=== PATIENT | female | born 1970 | race Hispanic/Latino ===

== ENCOUNTER 2018-09-26 09:42 | Emergency (ER) | payer BC ==
[2018-09-26 10:06] LABS: #Basophils 0.1 thou/uL (0.0-0.2); #Eosinphils 0.1 thou/uL (0.0-0.7); #Lymphocytes 2.4 thou/uL (1.20-3.40); #Monocytes 0.4 thou/uL (0.11-0.59); %Eosinophils 1.7 % (0.0-10.0); %Lymphocytes 29.9 % (21.0-51.0); %Monocytes 4.3 % (0.0-10.0); %Neutrophils 63.1 % (42.0-75.0); Mean Corpuscular HGB CONC 34.6 g/dL (32.0-36.0); Mean Corpuscular Hemoglobin 31.6 pg (27.0-31.0); Mean Corpuscular Volume 91.5 fL (78.0-98.0); Mean Platelet Volume 7.5 fL (7.4-10.4); Platelet Count 252 thou/uL (130-400); RBC Distribution Width 12.1 % (11.5-14.5); Red Blood Cell (RBC) Count 5.39 mill/uL (4.20-5.40)
[2018-09-26] MEDS ORDERED: hydrALAZINE 20 MG/ML VIAL ONE (10:15)
[2018-09-26 10:28] LABS: ALT (SGPT) 17 U/L (8-55); AST (SGOT) 18 U/L (5-34); Alkaline Phosphatase 109 U/L (40-150); Anion Gap 14 mmol/L (10-20); BUN (Urea Nitrogen) 10 mg/dL (7.0-18.7); Bilirubin, Total 0.6 mg/dL (0.2-1.2); CK (CPK) 61 U/L (29-168); Calc. Creatinine Clearance 0 mL/min (70-130); Calcium 9.7 mg/dL (7.8-10.44); Carbon Dioxide 28 mmol/L (22-29); Chloride 101 mmol/L (98-107); Estimated GFR-MDRD 84; Globulin 3.9 g/dL (2.4-3.5); Glucose 135 mg/dL (70-105); Potassium 3.5 mmol/L (3.5-5.1); Protein, Total 8.9 g/dL (6.0-8.3); Sodium 139 mmol/L (136-145)
[2018-09-26 10:33] LABS: Troponin I Less than 0.010 ng/mL (< 0.028)
--- NOTE | 2018-09-26 10:37 | RAD ---
ONE VIEW CHEST: History: Hypertension, dizziness. Comparison: None. FINDINGS: Normal cardiac silhouette. The pulmonary vessels and hilum are normal. No masses or consolidation. No pneumothorax or osseous abnormalities. IMPRESSION: No acute cardiopulmonary process. POS: [facility]
[2018-09-26] MEDS ORDERED: Meclizine HCl 25 MG TAB ONE (11:31)
[2018-09-26] MEDS ORDERED: Metoclopramide HCl 10 MG/2 ML VIAL ONE (11:31)
--- NOTE | 2018-09-30 17:04 | EKG ---
Test Reason : Blood Pressure : / mmHG Vent. Rate : 096 BPM Atrial Rate : 096 BPM P-R Int : 116 ms QRS Dur : 078 ms QT Int : 362 ms P-R-T Axes : 017 -01 035 degrees QTc Int : 457 ms Normal sinus rhythm Normal ECG Confirmed by TAJ PECK ([id number]), clinical editor REID FRIEDMAN ([id number]) on 09/30/2018 5:04:18 PM Referred By: Confirmed By:TAJ PECK
== END 2018-09-26 12:47 | disposition home or self-care (01) ==
LOC: ERS 09:42
DX: I10 Essential (primary) hypertension (principal); R42 Dizziness and giddiness; E11.9 Type 2 diabetes mellitus without complications; Z79.899 Other long term (current) drug therapy; Z79.84 Long term (current) use of oral hypoglycemic drugs
CPT/HCPCS: 71045; 80053; 82550; 82553; 83880; 84443; 84484; 85025; 93005; 96365; 96375; J0360; J2765

== ENCOUNTER 2020-01-24 13:06 | Outpatient (CLI) | payer BC ==
--- NOTE | 2020-01-24 14:13 | MMO ---
Bilateral MAMMO Bilat Screen [facility]. CLINICAL HISTORY: Patient is 49 years old and is seen for screening. The patient has no family history of breast cancer. The patient has no personal history of cancer. VIEWS: The views performed were: bilateral craniocaudal with tomosynthesis and bilateral mediolateral oblique with tomosynthesis. FILMS COMPARED: The present examination has been compared to prior imaging studies performed at [facility] on 07/10/2013, 07/17/2014, 08/09/2015 and 09/03/2016. This study has been interpreted with the assistance of computer-aided detection. MAMMOGRAM FINDINGS: There are scattered fibroglandular densities. There are no suspicious masses, suspicious calcifications, or new areas of architectural distortion. IMPRESSION: THERE IS NO MAMMOGRAPHIC EVIDENCE OF MALIGNANCY. A ROUTINE FOLLOW-UP MAMMOGRAM IN 1 YEAR IS RECOMMENDED. THE RESULTS OF THIS EXAM WERE SENT TO THE PATIENT. ACR BI-RADS Category 1 - Negative MAMMOGRAPHY NOTE: 1. A negative mammogram report should not delay a biopsy if a dominant of clinically suspicious mass is present. 2. Approximately 10% to 15% of breast cancers are not detected by mammography. 3. Adenosis and dense breasts may obscure an underlying neoplasm. Reported by: TIM JUNE MD Electonically Signed: [id number]
== END 2020-01-24 13:07 | disposition home or self-care (01) ==
LOC: BICMAMMO 13:06
PROVIDERS: ATTEND Family Medicine
DX: Z12.31 Encounter for screening mammogram for malignant neoplasm of breast (principal)
CPT/HCPCS: 77063; 77067

== ENCOUNTER 2020-05-02 07:06 | Observation (INO) | payer BC ==
[2020-05-02] MEDS ORDERED: Sodium Chloride 0.9% 1,000 ML IV SCH (07:30)
[2020-05-02] MEDS ORDERED: Ondansetron PF 4 MG/2 ML Vial IVP SCH (07:33)
[2020-05-02] MEDS ORDERED: Ondansetron PF 4 MG/2 ML Vial ONE ×2 (07:41→15:40)
[2020-05-02] MEDS ORDERED: Morphine 4 MG/ML VIAL ONE (07:41)
[2020-05-02] MEDS ORDERED: Morphine 4 MG/ML VIAL SLOW IVP SCH (07:53)
[2020-05-02 08:06] LABS: #Basophils 0.1 thou/uL (0.0-0.2); #Eosinphils 0.2 thou/uL (0.0-0.7); #Lymphocytes 1.2 thou/uL (1.20-3.40); #Monocytes 0.8 thou/uL (0.11-0.59); #Neutrophils 8.4 thou/uL (1.40-6.50); %Basophils 0.5 % (0.0-1.0); %Eosinophils 1.5 % (0.0-10.0); %Lymphocytes 11.3 % (21.0-51.0); %Monocytes 7.3 % (0.0-10.0); %Neutrophils 79.4 % (42.0-75.0); Mean Corpuscular HGB CONC 33.9 g/dL (32.0-36.0); Mean Corpuscular Hemoglobin 31.8 pg (27.0-31.0); Mean Corpuscular Volume 93.7 fL (78.0-98.0); Mean Platelet Volume 8.2 fL (7.4-10.4); Platelet Count 245 thou/uL (130-400); RBC Distribution Width 11.8 % (11.5-14.5); Red Blood Cell (RBC) Count 4.09 mill/uL (4.20-5.40); White Blood Cell (WBC) Count 10.6 thou/uL (4.8-10.8)
[2020-05-02 08:13] LABS: BHCG - Serum Negative (NEGATIVE); Pregs Control Background? CLEAR/WHITE (CLR/WHITE); Pregs Control Bar Appear? YES (CONTROL BAR)
--- NOTE | 2020-05-02 08:19 | CT ---
CT ABDOMEN AND PELVIS WITH CONTRAST: Date: 05/02/2020 HISTORY: Abdominal pain and nausea. COMPARISON: None. FINDINGS: There are some mild atelectatic changes in the lung bases. No pericardial effusion. There is marked d istention of the gallbladder with numerous gallstones in the gallbladder neck and body. There is blake cholecystic inflammation. The common bile duct is not dilated. No intrahepatic biliary dilatation. The spleen and pancreas are unremarkable, as well as the adrenal glands. No hydronephrosis. There is mass effect with abutment of the enlarged gallbladder upon the anterior cortex of the right kidney du e to mass effect. The aortic contour is nonaneurysmal. No free intraperitoneal air. Small, fat-containing umbilical hernia. No dilated loops of large or small bowel. Appendix is visuali zed and is normal. IMPRESSION: Findings of acute cholecystitis. Ultrasound confirmation is unnecessary. CODE T. POS: [facility]
[2020-05-02 08:21] LABS: ALT (SGPT) 10 U/L (8-55); AST (SGOT) 13 U/L (5-34); Albumin 3.6 g/dL (3.5-5.0); Alkaline Phosphatase 90 U/L (40-110); Anion Gap 12 mmol/L (10-20); BUN (Urea Nitrogen) 12 mg/dL (7.0-18.7); Bilirubin, Total 0.8 mg/dL (0.2-1.2); CK (CPK) 40 U/L (29-168); Calc. Creatinine Clearance 0 mL/min (70-130); Calcium 8.5 mg/dL (7.8-10.44); Carbon Dioxide 32 mmol/L (22-29); Chloride 97 mmol/L (98-107); Estimated GFR-MDRD 88; Globulin 3.2 g/dL (2.4-3.5); Glucose 195 mg/dL (70-105); Lipase 26 U/L (8-78); Protein, Total 6.8 g/dL (6.0-8.3); Sodium 138 mmol/L (136-145)
[2020-05-02 08:29] LABS: Potassium 2.9 mmol/L (3.5-5.1)
[2020-05-02] MEDS ORDERED: Piperacillin/Tazobactam 4.5 GM VIAL ONE (08:29)
[2020-05-02] MEDS ORDERED: Piperacillin/Tazobactam 4.5 GM in Sodium Chloride 0.9% 100 ML IVPB SCH (08:37)
[2020-05-02 08:49] LABS: INR-International Normal Ratio 1.1; PTT 36.8 sec (22.9-36.1); Prothrombin Time 14.3 sec (12.0-14.7)
--- NOTE | 2020-05-02 08:49 | RAD ---
PORTABLE CHEST: DATE: 05/02/2020. PROVIDED CLINICAL HISTORY: Abdominal pain with nausea and vomiting. FINDINGS: Comparison 09/26/2018. Cardiac and mediastinal silhouette is unchanged in appearance. No focal cons olidation, pleural fluid, or pneumothorax apparent. IMPRESSION: No evidence for an acute cardiopulmonary process. POS: [facility]
[2020-05-02 08:54] LABS: Phosphorus 3.1 mg/dL (2.3-4.7)
[2020-05-02 08:57] LABS: Bacteria/HPF None Seen HPF (None Seen); Bilirubin Negative (Negative); Blood, Urine Negative (Negative); Clarity Clear (Clear); Glucose, Urine (Dipstick) Normal (Negative); Leukocyte 500 Leu/uL (Negative); Nitrite Negative (Negative); Protein, Urine (Dipstick) 20 mg/dL (Neg-Trace); Squamous Epithelial 0-3 HPF (0-3); Urobilinogen Normal mg/dL (Less than 2)
[2020-05-02] MEDS ORDERED: Potassium Chloride 40 MEQ in Sodium Chloride 0.9% 250 ML 250 ML IVPB SCH (09:00)
--- NOTE | 2020-05-02 10:57 | ULT ---
GALLBLADDER ULTRASOUND: Date: 05/02/2020 HISTORY: Right upper quadrant pain. Gallstones. FINDINGS: Slight coarse increased liver echogenicity with some hepatomegaly. Very markedly distended and dilate d gallbladder with extensive sludge and numerous large gallstones within the neck of the gallbladder, as well as the fundus of the gallbladder, with some borderline gallbladder wall thickening. Patient does exhibit a positive Brannon's sign. Visualized pancreas and right kidney are unremarkable. Common bile duct is 0.2 cm. IMPRESSION: Very markedly distended dilated gallbladder with extensive sludge and multiple stones with some minim al gallbladder wall thickening and evidence for a positive Brannon's sign. Evidence for acute cholecys titis. POS: [facility]
[2020-05-02] MEDS ORDERED: Iopamidol-370 76% 500 ML 1 ML ONE (12:51)
--- NOTE | 2020-05-02 13:19 | HP ---
HISTORY OF PRESENT ILLNESS: Ms. Hdz is a 50-year-old woman, Mongolian-speaking only. The patient presented to emergency department today accompanied by her adult daughter, who provided interpretation. The patient reports insidious onset epigastric right upper quadrant abdominal pain, which started three days ago after breakfast. Pain was initially 6/10, intensified to 10/10 yesterday, associated with multiple episodes of nausea, one bout of emesis and abdominal bloating. She reports transient episodes of right upper quadrant postprandial abdominal pain over the last three months, but not as severe as what has brought her to the emergency department today. She denies any fevers or chills. PAST MEDICAL HISTORY: Pertinent for essential hypertension and diabetes mellitus. PAST SURGICAL HISTORY: Pertinent for through an infraumbilical midline incision. SOCIAL HISTORY: She is G3, P3. She denies any cigarette smoking, ethanol, or illicit drug abuse. FAMILY HISTORY: Noncontributory for this patient's age. PREHOSPITALIZATION MEDICATIONS: Include, 1. Quinapril 40 mg p.o. daily. 2. Metoprolol 100 mg p.o. daily. 3. Glyburide 2.5 mg p.o. daily. ALLERGIES: THE PATIENT DENIES ANY KNOWN DRUG ALLERGIES. REVIEW OF SYSTEMS: Ten-point review of systems essentially unremarkable, except as stated in past medical history and chief complaint. PHYSICAL EXAMINATION: GENERAL: This reveals a 50-year-old, normally developed woman, who is otherwise coherent and interactive and appears stated age. The patient is alert and oriented x3. She appears to be in moderate acute distress secondary to right upper quadrant abdominal pain. VITAL SIGNS: Include blood pressure 173/109, pulse 130, respiratory rate is 21, temperature 98.3 degrees Fahrenheit, oxygen saturation 100% on room air. Pain rated at 10/10 at this time. Had resolved to 5/10 after intravenous analgesics, at which time her blood pressure was noted at 159/101 with a pulse of 120. HEENT: Reveals normocephalic and atraumatic. Pupils are equal, round, reactive to light and accommodation. She has no scleral icterus present. HEART: Reveals regular rate with sinus tachycardia. No murmurs or gallops auscultated. LUNGS: Clear to auscultation bilaterally. Her breathing is regular and nonlabored. ABDOMEN: Soft with right upper quadrant tenderness to palpation. She has a positive Brannon sign. Liver and spleen otherwise nonpalpable below costal margin. NEUROLOGIC: Reveals no focal deficits present. LABORATORY FINDINGS: Today include a CBC with 10,600 white blood cells, hemoglobin and hematocrit 13.0 and 38.3 respectively. The platelet count is 245,000. Metabolic profile; sodium 138, potassium is 2.9, chloride is 97, bicarb is 32, BUN 12, creatinine 0.71, glucose 195, magnesium 2.0, phosphorus 3.1. AST and ALT, normal at 13 and 10 respectively. Total bilirubin 0.8. Alkaline phosphatase is 90. Serum test is negative. I have reviewed the radiographic studies including a CT scan of the abdomen and pelvis, which is remarkable for distended gallbladder with pericholecystic inflammation and two large intraluminal calcified gallstones. I have also reviewed the abdominal ultrasound, which is remarkable for markedly distended gallbladder with multiple intraluminal gallstones, gallbladder wall thickening, and pericholecystic fluid present. Common bile duct size is normal in diameter for this patient's age at 2 mm. IMPRESSION: Acute cholecystitis with cholelithiasis. PLAN: Laparoscopic cholecystectomy. Above findings and plan has been discussed with the patient through her daughter, who provided interpretation. I have advised the patient of the risks and benefits of the proposed surgery to include, but not limited to bleeding, infection, injury to bile duct or surrounding structures. The patient indicates understanding of information given. I have answered her questions. The patient is going to consent for this admission and surgical intervention. Job ID: [id number]
[2020-05-02] MEDS ORDERED: Insulin Regular 300 UNITS/3 ML VIAL SC PRN ×2 (13:25)
[2020-05-02] MEDS ORDERED: Dextrose 5% in Water 1,000 ML IV PRN (13:25)
[2020-05-02] MEDS ORDERED: hydrALAZINE 20 MG/ML VIAL SLOW IVP PRN (13:25)
[2020-05-02] MEDS ORDERED: Dextrose 50% Abboject 50 ML SYRINGE SLOW IVP PRN (13:25)
[2020-05-02] MEDS ORDERED: Ondansetron PF 4 MG/2 ML Vial IVP PRN (13:25)
[2020-05-02] MEDS ORDERED: Morphine 2 MG/ML SYRINGE SLOW IVP PRN (13:25)
[2020-05-02] MEDS: Morphine 4 MG/ML VIAL SLOW IVP PRN ×2 (13:58→20:35)
[2020-05-02] MEDS: Sodium Chloride 0.9% 1,000 ML IV SCH (13:58)
[2020-05-02] MEDS ORDERED: Rocuronium Bromide 10 MG/ML (10ML VIAL) ONE (15:40)
[2020-05-02] MEDS ORDERED: PROPOFOL 200 MG/20 ML VIAL ONE (15:40)
[2020-05-02] MEDS ORDERED: Glycopyrrolate 0.2 MG/ML 5 ML SYRINGE ONE (15:40)
[2020-05-02] MEDS ORDERED: Ketorolac Tromethamine 30 MG/ML VIAL ONE (15:40)
[2020-05-02] MEDS ORDERED: Labetalol HCl 100 MG/20 ML VIAL ONE (15:40)
[2020-05-02 17:43] VITALS: BMI 24.9
[2020-05-02] MEDS ORDERED: Acetaminophen 500 MG TAB PO SCH (19:15)
[2020-05-02] MEDS: Famotidine/PF 20 mg/2ml Vial SLOW IVP SCH (20:35)
[2020-05-02] MEDS ORDERED: Fentanyl 100 MCG/2 ML VIAL ONE ×2 (22:59→23:33)
[2020-05-02] MEDS ORDERED: Bupivacaine 0.25% HCL 30 ML VIAL ONE (23:01)
[2020-05-02] MEDS ORDERED: Lidocaine 1% w/Epinephrine 1:100K 20 ML VIAL ONE (23:01)
[2020-05-03] MEDS ORDERED: traMADol HCl 50 MG TAB PO PRN ×2 (01:23)
[2020-05-03] MEDS ORDERED: Ketorolac Tromethamine 30 MG/ML VIAL IVP PRN (01:23)
[2020-05-03] MEDS ORDERED: Ondansetron HCl/PF 4 MG/2 ML Vial IVP PRN (01:24)
[2020-05-03] MEDS ORDERED: Promethazine HCl 25 MG/ML VIAL SLOW IVP PRN (01:24)
[2020-05-03] MEDS ORDERED: Promethazine HCl 25 MG/ML VIAL IM PRN (01:24)
[2020-05-03] MEDS: Acetaminophen 500 MG TAB PO SCH ×3 (01:47→12:34)
--- NOTE | 2020-05-03 03:21 | OP ---
DATE OF PROCEDURE: 05/02/2020 PREOPERATIVE DIAGNOSES: Acute cholecystitis and cholelithiasis. POSTOPERATIVE DIAGNOSES: Acute cholecystitis and cholelithiasis. PROCEDURE PERFORMED: Laparoscopic cholecystectomy. ANESTHESIA: General endotracheal. ESTIMATED BLOOD LOSS: 100 mL. FLUIDS GIVEN: 1500 mL of crystalloids. COUNTS: Sponge and instrument counts were verified as correct x2. COMPLICATIONS: None apparent at the time of operation. INDICATIONS FOR OPERATION: A 50-year-old woman, presented with recurrent epigastric right upper quadrant abdominal pain. Clinical and radiographic examination were consistent with acute cholecystitis with cholelithiasis, for which the patient was brought to the operating room for cholecystectomy. Findings are consistent with markedly distended gallbladder in the usual anatomic location with multiple intraluminal gallstones and the gallbladder itself was completely encased by omental adhesions. DESCRIPTION OF PROCEDURE: Informed consent was obtained from the patient, who was brought to the operating room and placed in supine position. Following general anesthesia, abdomen was sterilely prepped and draped in usual fashion. The skin below the umbilicus was infiltrated with 0.25% Marcaine with epinephrine. A small curvilinear infraumbilical incision was made using 11 scalpel. Umbilical stalk was grasped with Gentry and elevated. Veress needle was inserted through the incision and placed in the peritoneal cavity, through which the abdomen was insufflated with 3 L of CO2 gas. Intraabdominal pressure was noted at 1 mmHg. Following abdominal insufflation, Veress needle was removed and a 5 mm trocar introduced using a Visiport under laparoscopy. Laparoscopy confirmed proper placement of the port, no injuries to underlying structures. Additional laparoscopy revealed the right upper quadrant completely encased by omental adhesions. Under direct laparoscopy, a 12 mm epigastric and two 5 mm right lateral subcostal ports were placed after the overlying skin was infiltrated with 0.25% Marcaine with epinephrine, and appropriate incision was made. The patient was placed in a reverse Trendelenburg position, rotated to her left. I introduced a [place] dissector with cautery through the epigastric port using this to take down omental adhesions to reveal the fundus of the gallbladder, which was purplish appearing. I tend to grasp the gallbladder with a Prestige grasper introduced through the right lateral subcostal port. The gallbladder was markedly distended and taut. I decided to decompress the gallbladder. To achieve this, I used an Endo suction catheter with cautery to create an opening at the fundus of the gallbladder using cautery. Excess black purulent bile was evacuated. Prestige grasper was then applied at the fundus, which was elevated cephalad. Omental adhesions were bluntly taken down from remainder of the gallbladder. It was quite inflamed and hyperemic oozing of blood. We bluntly dissected down to expose the neck of the gallbladder, which contained two large stones. I was able to manipulate the large stones into the gallbladder lumen and applied a Prestige grasper to the Melly pouch, which was then retracted laterally. Peritoneum of the gallbladder was opened at the gallbladder neck using a [place] dissector. The cystic duct and cystic artery were then dissected free from surrounding structures. Critical view was obtained. The cystic artery was then divided between clips high at the level of the gallbladder neck. This was divided between clips applying 2 clips proximally and 1 clip at the junction of the cystic artery and gallbladder. The cystic duct was also divided between clips in a similar fashion. The gallbladder itself was tediously, but meticulously taken off the liver with cautery and delivered of the abdominal cavity using the EndoCatch. We required extension of the epigastric port site in order to deliver the distended gallbladder with multiple large calcified stones even after the stones were crushed. Once the gallbladder was delivered, the trocar was reinserted and abdomen was re-insufflated. The gallbladder fossa was oozy of blood. No pulsatile bleed noted. Clips remained in place, no bile stains present. The gallbladder fossa was irrigated clear with saline solution. I applied Rc to the gallbladder fossa to achieve hemostasis. A #19 Gurdeep drain was introduced into the subhepatic space and allowed to exit the abdominal cavity through the right lateral subcostal port. The drain was secured to anterior abdominal wall using 2-0 silk suture. The fascia of the epigastric port was closed using 0 Vicryl suture and Endoclosure device. It was also reinforced using 0 Vicryl suture with a UR5 under direct vision. The abdomen was desufflated. All ports and instruments were removed and accounted for. Skin incision was closed using 4-0 Monocryl suture in subcuticular fashion. Dermabond was applied over incisional closure. The patient tolerated the operation without any apparent complication and was returned to recovery room in satisfactory condition. Job ID: [id number]
[2020-05-03 05:49] LABS: #Lymphocytes 0.8 thou/uL (1.20-3.40); #Monocytes 0.5 thou/uL (0.11-0.59); #Neutrophils 9.4 thou/uL (1.40-6.50); %Basophils 0.3 % (0.0-1.0); %Eosinophils 0.3 % (0.0-10.0); %Lymphocytes 7.4 % (21.0-51.0); %Monocytes 4.4 % (0.0-10.0); %Neutrophils 87.6 % (42.0-75.0); Hemoglobin 12.5 g/dL (12.0-16.0); Mean Corpuscular HGB CONC 34.4 g/dL (32.0-36.0); Mean Corpuscular Hemoglobin 32.8 pg (27.0-31.0); Mean Corpuscular Volume 95.5 fL (78.0-98.0); Mean Platelet Volume 7.6 fL (7.4-10.4); Platelet Count 297 thou/uL (130-400); White Blood Cell (WBC) Count 10.8 thou/uL (4.8-10.8)
[2020-05-03] MEDS: Sodium Chloride 0.9% 1,000 ML IV SCH (05:59)
[2020-05-03 06:41] LABS: ALT (SGPT) 89 U/L (8-55); AST (SGOT) 130 U/L (5-34); Albumin 3.4 g/dL (3.5-5.0); Alkaline Phosphatase 216 U/L (40-110); Anion Gap 14 mmol/L (10-20); BUN (Urea Nitrogen) 8 mg/dL (7.0-18.7); Bilirubin, Total 0.5 mg/dL (0.2-1.2); Calc. Creatinine Clearance 103 mL/min (70-130); Calcium 8.1 mg/dL (7.8-10.44); Carbon Dioxide 27 mmol/L (22-29); Chloride 102 mmol/L (98-107); Estimated GFR-MDRD 86; Globulin 3.6 g/dL (2.4-3.5); Glucose 217 mg/dL (70-105); Magnesium 1.8 mg/dL (1.6-2.6); Phosphorus 2.7 mg/dL (2.3-4.7); Potassium 4.3 mmol/L (3.5-5.1); Sodium 139 mmol/L (136-145)
[2020-05-03] MEDS ORDERED: Magnesium 2 GM/50 ML 2 GM in Premix Bag 1 BAG IVPB SCH (08:00)
[2020-05-03] MEDS ORDERED: Sodium Phosphate 15 MMOL in Sodium Chloride 0.9% 250 ML 250 ML IVPB SCH (08:00)
[2020-05-03] MEDS: Famotidine/PF 20 mg/2ml Vial SLOW IVP SCH (08:08)
[2020-05-03] MEDS ORDERED: Hydrochlorothiazide 25 MG TAB PO SCH (09:00)
[2020-05-03] MEDS ORDERED: Lisinopril 20 MG TAB PO SCH (09:00)
[2020-05-03 11:58] VITALS: BP 150/92; TEMP 98.5
--- NOTE | 2020-05-03 15:19 | EKG ---
Test Reason : Blood Pressure : / mmHG Vent. Rate : 093 BPM Atrial Rate : 093 BPM P-R Int : 144 ms QRS Dur : 078 ms QT Int : 412 ms P-R-T Axes : 016 000 014 degrees QTc Int : 512 ms Normal sinus rhythm Inferior infarct , age undetermined Prolonged QT Abnormal ECG Confirmed by DIA TRIPATHI, ALISSA ([id number]), supervising editor news reel MATIAS BLUE ([id number]) on 05/03/2020 3:18:52 PM Referred By: Confirmed By:ALISSA ALVARES MD
--- NOTE | 2020-05-03 17:28 | DIS ---
DATE OF ADMISSION: 05/02/2020 DATE OF DISCHARGE: 05/03/2020 ADMISSION DIAGNOSES: Acute cholecystis and cholelithiasis. DISCHARGE DIAGNOSES: Acute cholecystis and cholelithiasis. CONSULTING PHYSICIAN: None. PROCEDURES: The patient went to the OR on May 02, 2020 and had a laparoscopic cholecystectomy by Dr. Mack. HOSPITAL COURSE: The patient is a 50-year-old female, who presented with abdominal pain, was found to have acute cholecystitis and cholelithiasis. She went to the OR the next day and had a laparoscopic cholecystectomy. Postoperatively, she tolerated a regular diet, voided without difficulties, was passing gas, and was hemodynamically stable when she was discharged home. DISCHARGE DISPOSITION: Home. DISCHARGE CONDITION: Satisfactory. PHYSICAL EXAMINATION: VITAL SIGNS: Temperature 98.7, pulse rate 99, respirations are 12, oxygen saturation 97% on room air, and blood pressure 150/92. GENERAL: A well-appearing middle-aged female, lying in bed with no signs of acute distress. PULMONARY: Equal chest rise and fall. No signs of acute respiratory distress. CARDIAC: Regular rate and rhythm. GASTROINTESTINAL: Soft, mildly tender to palpation and nondistended. EXTREMITIES: 2+ pulses in all extremities. Gross motor and sensation intact. No significant swelling noted. NEUROLOGIC: GCS 15. DISCHARGE INSTRUCTIONS: The patient was discharged home, activity as tolerated, diabetic diet. DISCHARGE MEDICATIONS: Tylenol, glipizide, hydrochlorothiazide, metoprolol, quinapril, and tramadol. FOLLOWUP APPOINTMENTS: The patient is to follow up with Dr. Mack in clinic on May 16, 2020, at 10:30 a.m. She is to complete LFTs before her appointment. This is a summary of the patient's hospitalization. For full details, please see her medical record in its entirety. Dr. Mack evaluated the patient on the day of discharge with myself during rounds. Job ID: [id number]
== END 2020-05-03 14:03 | disposition home or self-care (01) ==
LOC: ERS 07:06 → ERHOLD 08:57 → SJJU 11:55
PROVIDERS: ADMIT Surgery; ATTEND Surgery
PROC: 0FT44ZZ Resection of Gallbladder, Percutaneous Endoscopic Approach (ICD-10-PCS; principal; 2020-05-03)
DX: K80.12 Calculus of gallbladder with acute and chronic cholecystitis without obstruction (principal); I10 Essential (primary) hypertension; E11.9 Type 2 diabetes mellitus without complications; Z79.84 Long term (current) use of oral hypoglycemic drugs; Z79.899 Other long term (current) drug therapy
CPT/HCPCS: 36415; 36416; 71045; 74177; 76705; 80053; 81003; 81015; 82550; 83690; 83735; 84100; 84703; 85025; 85610; 85730; 86850; 86900; 86901; 87086; 88304; 93005; 96361; 96365; 96366; 96367; 96375; 96376; G0378; J0360; J1815; J1885; J2270; J2405; J2543; J2704; J3010; J3480; J7050; Q9967; S0020; S0028

== ENCOUNTER 2020-07-08 07:45 | Outpatient (CLI) | payer BC ==
--- NOTE | 2020-07-08 11:31 | ULT ---
BILATERAL RENAL ULTRASOUND WITH CARRIZALES SCALE AND COLOR FLOW AND SPECTRAL DOPPLER IMAGING: Date: 07/08/2020 HISTORY: Hypertension. FINDINGS: The right kidney measures 11.8 cm in length and the left kidney measures 10.2 cm in length. No focal mass or hydronephrosis is seen. Renal echogenicity and thickness is normal. There is a 6.0 mm shadowi ng calculus in the right kidney. The urinary bladder is empty. The peak systolic velocity in the right renal artery measures 82 cm/second and in the left renal sue ry measures 93 cm/second, with renal artery-aortic ratios of 1.0 on the right and 1.2 on the left. Th e resistive indices measure 0.59 on the right and 0.68 on the left. IMPRESSION: 1. Nonobstructing 6.0 mm right renal calculus. 2. No evidence of hemodynamically significant renal artery stenosis. POS: [facility]
== END 2020-07-08 07:46 | disposition home or self-care (01) ==
LOC: BICULT 07:45
PROVIDERS: ATTEND Internal Medicine Nephrology
DX: I10 Essential (primary) hypertension (principal); N20.0 Calculus of kidney
CPT/HCPCS: 76770; 93975

== ENCOUNTER 2020-09-27 06:18 | Outpatient (CLI) | payer BC ==
[2020-09-27 11:20] LABS: #Eosinphils 0.1 10x3/uL (0.0-0.5); #Monocytes 0.4 10x3/uL (0.0-1.1); #Neutrophils 2.8 10x3/uL (1.5-8.4); %Basophils 0.7 % (0.0-2.0); %Lymphocytes 24.8 % (18.0-47.0); %Monocytes 8.4 % (0.0-10.0); %Neutrophils 63.6 % (40.0-75.0); Hemoglobin 13.7 g/dL (12.0-16.0); Mean Corpuscular HGB CONC 34.1 G/DL (32.0-36.0); Mean Corpuscular Hemoglobin 31.1 PG (27.0-33.0); Mean Corpuscular Volume 91.2 fl (80.0-100.0); Mean Platelet Volume 10.8 fl (7.4-10.4); Platelet Count 166 10x3/uL (130-400); RBC Distribution Width 12.1 % (11.5-14.5); Red Blood Cell (RBC) Count 4.41 10x6/uL (3.90-5.20); White Blood Cell (WBC) Count 4.4 10x3/uL (4.5-11.0)
[2020-09-27 11:35] LABS: Anion Gap 12 mmol/L (10-20); BUN (Urea Nitrogen) 14 mg/dL (7.0-18.7); Calc. Creatinine Clearance 0 mL/min (70-130); Carbon Dioxide 32 mmol/L (22-29); Chloride 101 mmol/L (98-107); Estimated GFR-MDRD 85; Glucose 172 mg/dL (70-105); Potassium 3.4 mmol/L (3.5-5.1); Sodium 142 mmol/L (136-145)
[2020-09-27 22:10] LABS: SARS-CoV-2 MS2 Positive; SARS-CoV-2 N Gene Positive; SARS-CoV-2 S Gene Positive; SARS-CoV-2 by NAA DETECTED (NotDetected); SARS-CoV-2 orf1ab Positive
--- NOTE | 2020-10-01 06:56 | EKG ---
Test Reason : PREOP Blood Pressure : / mmHG Vent. Rate : 079 BPM Atrial Rate : 079 BPM P-R Int : 150 ms QRS Dur : 090 ms QT Int : 424 ms P-R-T Axes : 024 045 056 degrees QTc Int : 486 ms Normal sinus rhythm No previous ECGs available Confirmed by RENY HOLBROOK MD ([id number]) on 10/01/2020 6:56:24 AM Referred By: CEZAR Confirmed By:RENY HOLBROOK MD
== END 2020-09-27 06:19 | disposition home or self-care (01) ==
LOC: LABBT 06:18
PROVIDERS: ATTEND Specialist
DX: U07.1 COVID-19 (principal); Z01.818 Encounter for other preprocedural examination; K43.2 Incisional hernia without obstruction or gangrene
CPT/HCPCS: 80048; 85025; 87635; 93005; 93010; U0003

== ENCOUNTER 2020-10-16 06:59 | Day surgery (SDC) | payer BC ==
[2020-10-15 10:50] VITALS: BMI 27.4
--- NOTE | 2020-10-15 11:10 | HP ---
HISTORY OF PRESENT ILLNESS: Alaina Hdz is a 50-year-old female, cook at [employer], Monegasque speaking only. She is here with her son who translates. The patient had a laparoscopic cholecystectomy in April [address] Mack. About 2 months ago, she began experiencing a bulgy mass in the right subxiphoid scar area. Exam reveals changes consistent with incisional hernia. Previous CAT scan prior to her cholecystectomy suggested an umbilical hernia containing fat, but this is asymptomatic. Plan is robot repair of incisional hernia in right subxiphoid with mesh reinforcement. She understands risks and benefits, and consents. We will plan this as an outpatient. ALLERGIES: NONE. SOCIAL HISTORY: Tobacco, none. Alcohol, none. MEDICATIONS: 1. Quinapril 40 mg b.i.d. 2. Clonidine 0.1 mg p.r.n. 3. Metoprolol 100 mg b.i.d. 4. Hydrochlorothiazide 25 mg in a.m. 5. Glipizide daily. PAST MEDICAL HISTORY: Diabetes, hypertension. PAST SURGICAL HISTORY: , cholecystectomy. REVIEW OF SYSTEMS: Ten-point noncontributory. FAMILY HISTORY: Noncontributory. PHYSICAL EXAMINATION: VITAL SIGNS: Weight 152 pounds, height 61 inches, 28 BMI, blood pressure 186/98, pulse 74, temperature 97 degrees. HEAD, EARS, EYES, NOSE AND THROAT: Unremarkable. LUNGS: Clear to auscultation. CARDIAC: Regular rate and rhythm. No murmur or gallop. ABDOMEN: Soft. Incisional hernia in right subxiphoid scar. Umbilical area normal. No appreciable hernia. EXTREMITIES: Unremarkable. ASSESSMENT: Incisional hernia, right subxiphoid. PLAN: Robot repair with mesh reinforcement outpatient. She understands the risks and benefits, and consents. Questions were answered. Job ID: [id number]
[2020-10-16] MEDS ORDERED: Acetaminophen 500 MG TAB ONE (07:31)
[2020-10-16] MEDS ORDERED: Ketorolac Tromethamine 30 MG/ML VIAL ONE (07:32)
[2020-10-16] MEDS ORDERED: Gabapentin 300 MG CAP ONE (07:32)
[2020-10-16] MEDS ORDERED: Scopolamine 1.5 mg/72 hour Patch ONE (07:33)
[2020-10-16] MEDS ORDERED: Ondansetron PF 4 MG/2 ML Vial ONE (09:51)
[2020-10-16] MEDS ORDERED: PHENYLEPHRINE-NS 100 MCG/ML 10 ML SYRINGE ONE (09:51)
[2020-10-16] MEDS ORDERED: Lidocaine 1% PF 5 ML VIAL ONE (09:51)
[2020-10-16] MEDS ORDERED: Bupivacaine 0.25% HCL 30 ML VIAL ONE (09:51)
[2020-10-16] MEDS ORDERED: Glycopyrrolate 0.2 MG/ML 5 ML SYRINGE ONE (09:51)
[2020-10-16] MEDS ORDERED: Labetalol HCl 100 MG/20 ML VIAL ONE (09:51)
[2020-10-16] MEDS ORDERED: PROPOFOL 200 MG/20 ML VIAL ONE (09:51)
[2020-10-16] MEDS ORDERED: ePHEDrine 50 MG/ML VIAL ONE (09:51)
[2020-10-16] MEDS ORDERED: Lidocaine 1% w/Epinephrine 1:100K 20 ML VIAL ONE (09:51)
[2020-10-16] MEDS ORDERED: Rocuronium Bromide 10 MG/ML (10ML VIAL) ONE (09:51)
[2020-10-16] MEDS ORDERED: Fentanyl 100 MCG/2 ML VIAL ONE ×3 (11:03→13:39)
[2020-10-16] MEDS ORDERED: Lidocaine 2% Jelly 5 ML TUBE ONE (11:03)
[2020-10-16] MEDS ORDERED: hydrALAZINE 20 MG/ML VIAL ONE (13:33)
[2020-10-16] MEDS ORDERED: HYDROcodone/Acetaminophen 5/325 mg Tablet ONE (14:11)
--- NOTE | 2020-10-16 18:18 | OP ---
DATE OF PROCEDURE: 10/16/2020 PREOPERATIVE DIAGNOSIS: Incisional hernia from old trocar site, right subxiphoid from laparoscopic cholecystectomy. POSTOPERATIVE DIAGNOSIS: Incisional hernia from old trocar site, right subxiphoid from laparoscopic cholecystectomy. PROCEDURE PERFORMED: Laparoscopic/robotic repair of incisional hernia right subxiphoid with 8 cm Ventralight mesh reinforcement. ANESTHESIA: General, local 0.25% Marcaine 30 mL mixed with 1% Xylocaine with epinephrine 20 mL. DESCRIPTION OF PROCEDURE: The patient was taken to the operating room, where in the supine position under general anesthesia, abdomen was prepared with ChloraPrep and draped in routine fashion. Local anesthetic was infiltrated into the skin and subcutaneous tissue about each port site. Left lateral subcostal incision was made. Pneumoperitoneum to 15 mmHg was obtained with a Veress needle, replaced with 8 mm port. The video laparoscope was inserted, noted adhesion free area infraumbilical. Left paramedian infraumbilical incision was made and a 12 mm balloon port was placed and the video laparoscope moved to this port. Right lateral axillary line umbilical level incision was made and 8 mm port placed. Robot was docked, properly positioned, and robot incisional hernia repair undertaken. Falciform ligament and fatty tissue dissected free from the hernia defect, right subxiphoid clearing the abdominal wall. Incisional hernia was identified. It was about 3.5 cm defect. Fascia was approximated with continuous suture of #0 V-Loc suture to and fro. Once completed, 8 cm Ventralight coated mesh placed, properly positioned, held in place with this 0 V-Loc suture while 2-0 Strattafix used circumferentially secured the mesh to the abdominal wall after reducing pneumoperitoneum to 9 mmHg. After completing the mesh fixation, sutures cut, needles removed, port sites were closed with interrupted subdermal 4-0 Monocryl and [place] glue applied. The patient tolerated the procedure well. Job ID: [id number]
== END 2020-10-16 16:05 | disposition home or self-care (01) ==
LOC: SDC 06:59
PROVIDERS: ATTEND Specialist
PROC: 0WUF4JZ Supplement Abdominal Wall with Synthetic Substitute, Percutaneous Endoscopic Approach (ICD-10-PCS; principal; 2020-10-16)
DX: K43.2 Incisional hernia without obstruction or gangrene (principal); E11.9 Type 2 diabetes mellitus without complications; I10 Essential (primary) hypertension; Z79.84 Long term (current) use of oral hypoglycemic drugs; Z79.899 Other long term (current) drug therapy
CPT/HCPCS: 36416; C1781; J0360; J0690; J1885; J2405; J2704; J3010; J3490; S0020

== ENCOUNTER 2021-07-28 15:15 | Outpatient (CLI) | payer BC | END 2021-07-28 15:16 | disposition home or self-care (01) | LOC: BICMAMMO 15:15 | PROVIDERS: ATTEND Family Medicine | DX: Z12.31 Encounter for screening mammogram for malignant neoplasm of breast (principal) | CPT/HCPCS: 77063; 77067 ==

== ENCOUNTER 2021-08-12 15:20 | Outpatient (CLI) | payer BC | END 2021-08-12 15:21 | disposition home or self-care (01) | LOC: BICULT 15:20 | PROVIDERS: ATTEND Family Medicine | DX: N85.8 Other specified noninflammatory disorders of uterus (principal) | CPT/HCPCS: 76856 ==

== ENCOUNTER 2024-04-19 09:00 | Outpatient (CLI) | payer OTHER | END 2024-04-19 09:01 | disposition home or self-care (01) | LOC: ULT 09:00 | PROVIDERS: ATTEND Internal Medicine Cardiovascular Disease | DX: I10 Essential (primary) hypertension (principal) | CPT/HCPCS: 76770; 93975 ==

== ENCOUNTER → 2024-10-11 | Outpatient (CLI) | payer OTHER | LOC: BICMAMMO 07:39 | PROVIDERS: ATTEND Family Medicine | DX: Z12.31 Encounter for screening mammogram for malignant neoplasm of breast (principal) | CPT/HCPCS: 77063; 77067 ==

== ENCOUNTER 2024-11-02 15:11 | Outpatient (CLI) | payer OTHER | END 2024-11-02 15:12 | disposition home or self-care (01) | LOC: BICRAD 15:11 | PROVIDERS: ATTEND Family Medicine | DX: M25.561 Pain in right knee (principal); M71.21 Synovial cyst of popliteal space [Baker], right knee; M17.11 Unilateral primary osteoarthritis, right knee ==

== ENCOUNTER 2025-11-06 10:42 | Outpatient (CLI) | payer BC | END 2025-11-06 10:43 | disposition home or self-care (01) | LOC: BICMAMMO 10:42 | PROVIDERS: ATTEND Family Medicine | DX: Z12.31 Encounter for screening mammogram for malignant neoplasm of breast (principal) | CPT/HCPCS: 77063; 77067 ==

== ENCOUNTER 2025-11-08 17:12 | Emergency (ER) | payer BC ==
[2025-11-08 17:45] LABS: #Basophils 0.09 10x3/uL (0.0-0.2); #Eosinophils 0.11 10x3/uL (0.0-0.7); #Monocytes 0.90 10x3/uL (0.11-0.59); #Neutrophils 14.24 10x3/uL (1.40-6.50); %Basophils 0.5 % (0.0-1.0); %Eosinophils 0.6 % (0.0-10.0); %Lymphocytes 8.9 % (21.0-51.0); %Monocytes 5.3 % (0.0-10.0); %Neutrophils 84.1 % (42.0-75.0); Hematocrit 37.4 % (36.0-47.0); Hemoglobin 12.8 g/dL (12.0-16.0); Mean Corpuscular Hemoglobin 31.1 pg (27.0-31.0); Mean Corpuscular Volume 91.0 fL (78.0-98.0); Platelet Count 217 10x3/uL (130-400); Red Blood Cell (RBC) Count 4.11 mill/uL (4.20-5.40); White Blood Cell (WBC) Count 16.95 10x3/uL (4.8-10.8)
[2025-11-08 18:06] LABS: ALT (SGPT) 18 U/L (Less than 34); AST (SGOT) 59 U/L (11-34); Albumin 3.9 g/dL (3.1-4.5); Alkaline Phosphatase 119 U/L (40-110); Anion Gap 20 mmol/L (10-20); BUN (Urea Nitrogen) 20 mg/dL (9.8-20.1); Bilirubin, Total 0.7 mg/dL (0.3-1.2); Calc. Creatinine Clearance 0 mL/min (70-130); Calcium 9.4 mg/dL (7.8-10.44); Carbon Dioxide 20 mmol/L (22-29); Chloride 100 mmol/L (98-107); Globulin 3.8 g/dL (2.4-3.5); Glucose 304 mg/dL (70-105); Potassium 3.6 mmol/L (3.5-5.1); Sodium 136 mmol/L (136-145)
[2025-11-08] MEDS ORDERED: Ondansetron PF 4 MG/2 ML Vial ONE ×2 (18:09→20:55)
[2025-11-08] MEDS ORDERED: Mag-Al 1200 mg/1200 mg/30 ML UDCUP ONE (18:46)
[2025-11-08] MEDS ORDERED: Pantoprazole 40 MG VIAL ONE (18:47)
[2025-11-08] MEDS ORDERED: Lidocaine Viscous Sol 2% 15 ml UD Cup ONE (18:47)
== END 2025-11-08 21:50 ==
LOC: ERS 17:12
DX: R10.13 Epigastric pain (principal); R11.2 Nausea with vomiting, unspecified; I10 Essential (primary) hypertension; E11.9 Type 2 diabetes mellitus without complications; Z79.84 Long term (current) use of oral hypoglycemic drugs; Z79.899 Other long term (current) drug therapy
CPT/HCPCS: 71045; 74177; 80053; 83690; 84484; 85025; 93005; 96361; 96374; 96375; 96376; J2270; J2405; J2470